=== PATIENT | male | born 1935 | race Caucasian/White ===

== ENCOUNTER 2021-03-16 16:58 | IRF | payer MEDICARE, SELFPAY ==
--- NOTE | 2021-03-16 16:56 | ADMGEN ---
Arrived via personal vehicle with daughter. This patient, Macario Portillo, was admitted to PSYCHIATRIC Room 226-02. Patient/family oriented to hospital policies and general routines including ID bracelet, bed and alarms, visiting hours, pain management, procedures, bathroom and other care routines, personal items, smoking policy, room service/diet, and visiting hours. Information on how to activate the Rapid Response Team has been discussed. Patient/Family are encouraged to report perceived risks to care and to ask questions if they do not understand what they are told or what they should do.
[2021-03-16 17:16] LABS: Glucose Point of Care 130 mg/dl (65-105)
[2021-03-16 17:22] VITALS: BP 146/63; PULSE 58; RESP 95; TEMP 36.4; O2SAT 20
[2021-03-16 17:23] VITALS: BMI 24.0
--- NOTE | 2021-03-16 17:38 | WPDREHABHP ---
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 Patient was found to have left-sided weakness and slurred speech. CT of the head showed no acute intracranial abnormalities. CTA of the head and neck showed no hemodynamically significant stenosis. MRI of the brain demonstrated restricted diffusion in the right periventricular region, wyatt radiata, centrum ovale, suggesting areas of acute lacunar infarcts. MRI of the spine noted degenerative changes with irregularities in the C-spine but no cord signal abnormalities. Echo revealed an ejection fraction of 65-70% and there was no PFO or shunting. Neurology was consulted and the patient was placed on aspirin, Plavix and statin. Patient continued to have left-sided weakness, impaired balance, decreased gross motor control, and decreased safety. Patient is on a regular consistency diet with thin liquids. Patient has intermittent dysarthria and some delayed speech. Patient currently requires min assist with all ADLs and mobility. patient's transfer to [place] [facility] was delayed after patient experienced a 1/2 hour episode of worsening left sided weakness. CT scan was performed with no new changes and patient was cleared to transfer to rehab. Patient was the primary caregiver of his . He has 2 daughters that are supportive. COVID the patient has not traveled outside the [place] or had contact with someone who is ill that has traveled outside the [place] in the past 21 days. Patient has not traveled to an area of the [place] that is experiencing no transmission of the Coronavirus and has not had close personal contact with anyone with COVID. Patient does not have a fever or experienced lower respiratory illness. COVID 19 test on 03/15/2021 was negative Therapy was initiated at the acute care facility and the patient transferred to us from [facility] on 03/16/2021 FALLS OR SURGERIES: The patient has had [no] major surgeries in the 100 days prior to admission. the patient has had falls without injuries. PRIOR LEVEL OF FUNCTION: Eating was [INDEPENDENT] Oral Care was [INDEPENDENT] Toileting Hygiene was [INDEPENDENT] Shower/Bathing was [INDEPENDENT] Upper Body Dressing was [INDEPENDENT] Lower Body Dressing was [INDEPENDENT] Donning/Glidden Footwear was [INDEPENDENT] Rolling Left and Right was [INDEPENDENT] Sit to Lying was [INDEPENDENT] Lying to Sitting was [INDEPENDENT] Sit to Stand was [INDEPENDENT] Bed to Chair Transfers was [INDEPENDENT] Toilet Transfers was [INDEPENDENT] Walking was [INDEPENDENT] [>500 feet] with [NO DEVICE] Wheelchair Mobility was [NOT APPLICABLE PRIOR TO ADMISSION] Stairs were [INDEPENDENT] CURRENT LEVEL OF FUNCTION: Eating was Supervision or touching assistance Oral Care was supervision or touching assistance Toileting Hygiene was partial to moderate assist Shower/Bathing was partial to moderate assist Upper Body Dressing was partial to moderate assist Lower Body Dressing was partial to moderate assist Donning/Glidden Footwear was partial to moderate assist Rolling Left and Right was partial to moderate assist Sit to Lying was partial to moderate assist Lying to Sitting was partial to moderate assist Sit to Stand was partial to moderate assist Bed to Chair Transfers were partial to moderate assist Toilet Transfers were partial to moderate assist Walking was 180 ft with a roller walk
[2021-03-16 18:03] VITALS: BMI 24.0
[2021-03-16 21:10] VITALS: PULSE 66
[2021-03-16] MEDS: MELATONIN 5 MG TABLET PO (21:10)
[2021-03-16] MEDS: FINASTERIDE 5 MG TABLET PO (21:10)
[2021-03-16] MEDS: ATORVASTATIN 40 MG TABLET PO (21:10)
[2021-03-16] MEDS: METOPROLOL SUCCINATE EXT REL 100 MG TABCR 200 MG PO (21:10)
[2021-03-16 22:00] VITALS: BP 150/58; PULSE 63; RESP 16; TEMP 36.5; O2SAT 96
[2021-03-16 22:03] LABS: Glucose Point of Care 141 mg/dl (65-105)
[2021-03-17 04:48] LABS: Basophils Absolute Auto 0.1 K/mm3 (0.0-0.1); Basophils Percent Auto 0.9 % (0.2-1.2); Eosinophils Absolute Auto 0.2 K/mm3 (0-0.3); Eosinophils Percent Auto 2.6 % (0-4.4); Hematocrit 37.4 % (42.0-52.0); Hemoglobin 12.6 g/dL (14.0-18.0); Immature Granulocyte Absolute 0.02 K/mm3 (0.00-0.031); Immature Granulocyte Percent A 0.3 % (0-0.5); Lymphocytes Absolute Auto 1.57 K/mm3 (0.9-3.2); Lymphocytes Percent Auto 22.7 % (18.3-44.2); Mean Corpuscular HGB Conc 33.7 g/dl (32-36); Mean Corpuscular Hemoglobin 30.2 pg (26-34); Mean Corpuscular Volume 89.7 fl (80-100); Mean Platelet Volume 11.6 fl (7.4-10.4); Monocytes Absolute Auto 0.8 K/mm3 (0.1-0.6); Monocytes Percent Auto 11.4 % (2.6-8.5); Neutrophils Absolute Auto 4.3 K/mm3 (1.3-6.7); Neutrophils Percent Auto 62.1 % (45.5-73.1); Platelet Count Result 189 k/mm3 (150-375); Red Blood Count 4.17 M/mm3 (4.6-6.20); Red Cell Distribution Width 13.5 % (11.5-14.5); White Blood Count 6.9 K/mm3 (4.5-10.0)
[2021-03-17 05:02] LABS: Alanine Aminotransferase 30 U/L (4-50); Albumin Level 3.2 g/dL (3.5-5.1); Alkaline Phosphatase 63 U/L (38-126); Anion Gap 5 mmol/L (8-16); Aspartate Amino Transferase 28 U/L (17-59); Bilirubin,Total 0.3 mg/dL (0.2-1.3); Blood Urea Nitrogen 23 mg/dL (9-20); Calcium 9.5 mg/dL (8.4-10.2); Carbon Dioxide 26 mmol/L (22-30); Chloride 107 mmol/L (98-107); Cholesterol 55 mg/dL (0-200); Estimated CRCL calculation 40 ml/min; Estimated Glomerular Filt Rate 58; Glucose 102 mg/dL (75-110); HDL Direct 30 mg/dL; Potassium 3.8 mmol/L (3.4-5.0); Sodium 138 mmol/L (137-145); Triglycerides 70 mg/dL (<150)
[2021-03-17 05:23] LABS: Hemoglobin A1C 5.6 % (<5.7)
[2021-03-17 05:51] LABS: LDL Cholesterol Direct < 30 mg/dL
[2021-03-17 06:00] VITALS: BP 190/71; PULSE 50; RESP 18; TEMP 36.1; O2SAT 99
[2021-03-17 06:10] LABS: Glucose Point of Care 113 mg/dl (65-105)
[2021-03-17 08:00] VITALS: O2SAT 98
[2021-03-17] MEDS: ASPIRIN 325 MG TABLET PO (09:32)
[2021-03-17] MEDS: NIFEdipine 30 MG TAB.ER.24 90 MG PO (09:32)
[2021-03-17] MEDS: CHOLECALCIFEROL 1,000 UNITS TABLET 1000 UNITS PO (09:33)
[2021-03-17] MEDS: CLOPIDOGREL BISULFATE 75 MG TABLET PO (09:33)
[2021-03-17] MEDS: LOSARTAN POTASSIUM 100 MG TABLET PO (09:33)
[2021-03-17 11:52] LABS: Glucose Point of Care 112 mg/dl (65-105)
[2021-03-17 14:00] VITALS: BP 162/67; PULSE 72; RESP 16; TEMP 35.7; O2SAT 98
[2021-03-17 14:35] VITALS: BMI 24.0
--- NOTE | 2021-03-17 15:13 | RPD ---
INDIVIDUALIZED PLAN OF CARE FOR Macario Portillo Brief Synthesis of Pre-Admission Screen, Post-Admission Evaluation and Therapy Evaluations: The patient presents to rehab with multiple acute infarcts. Comorbidities include hypertension, diabetes mellitus, renal disorder, left-sided weakness, intermittent dysarthria, coronary artery disease,and electrolyte imbalances. The complexity of the patient's medical management, nursing, and therapy needs require an inpatient rehab hospital stay with a physician-led interdisciplinary team approach. The patient?s needs will be best met in an intensive program vs. at a lower level of care. The patient requires physician services for neurology services, medical oversight, and coordination of care. Emotional needs will be monitored as depression is a common sequelae of stroke. The patient needs physician monitoring and treatment of hypertension, electrolyte imbalances, monitoring for adverse reactions to new medications, and monitoring for infection. The patient requires nursing services for frequent neuro checks, anticoagulation therapy, medication management and education, pressure relief and skin care management, monitoring of labs, diabetes management and education, and fall/safety precautions. Deficits include:ADLs, Balance, Endurance, Family Training/Education, Mobility, ROM, Safety, Strength, Transfers Workforce Planning Analyst/Case Management for: Discharge Planning and Patient/Family Counseling Physical Therapy: 5 days per week for 60 minutes. Treatments may include: Therapeutic Exercise, Gait Training, Neuromuscular Re-education, Transfer Training, Community Reintegration, Bed Mobility, Patient/Family Education, Wheelchair Mobility Group Therapy/Concurrent Therapy Rationales: -Improve attention span during functional activities in a distracted environment. -Enhance problem solving and/or adequate judgment skills during functional activities in a distracted environment. -Promote increased safety awareness in a distracted environment to reduce fall risk with functional tasks, transfers, and ambulation to allow a more safe, self-sufficient return to the home environment. -Improve dynamic balance skills to promote safety and independence with functional activities in a distracted environment for maximum gain. Occupational Therapy: 5 days per week for 60 minutes. Treatments may include: Therapeutic Exercise, Therapeutic Activity, Cognitive Training, Self-Care Transfer Training, Community Reintegration, Home Management, Patient/Family Education, Wheelchair Mobility Training, Energy Conservation Training Group Therapy/Concurrent Therapy Rationales: -Allow therapist to observe and teach generalization and carry-over of skills learned in individual therapy. -Enhance problem solving and sequencing skills during therapeutic activities in a distracted environment. -Promote increased safety awareness in a realistic setting to reduce fall risk with functional tasks due to visual and verbal distractions. -Increase functional level with ADLs, ADL transfers and use of adaptive equipment through therapeutic activities with others while promoting safety to allow a more safe, self-sufficient return home. Speech Therapy: 5 days per week for 60 minutes. Treatments may include: Dysphasia Therapy, Speech/Language/Communication Therapy, Cognitive Training, Patient/Family Education Group Therapy/Concurrent Therapy - Rationale: -Allow therapist to observe and teach generalization and carry-over of skills learned in individual therapy. -Improve comprehension skills with complex or abstract ideas through discussion in a realistic setting. -Enhance problem solving skills with complex issues during activities in a distracted environment. -Promote increased memory skills and concentration in a distracted environment for a safe transition home. -Improve attention and focus with language/communication skills in a realistic and supportive therapeutic setting. -Al
--- NOTE | 2021-03-17 15:21 | WPDNEURORHBP ---
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 Patient was found to have left-sided weakness and slurred speech. CT of the head showed no acute intracranial abnormalities. CTA of the head and neck showed no hemodynamically significant stenosis. MRI of the brain demonstrated restricted diffusion in the right periventricular region, wyatt radiata, centrum ovale, suggesting areas of acute lacunar infarcts. MRI of the spine noted degenerative changes with irregularities in the C-spine but no cord signal abnormalities. Echo revealed an ejection fraction of 65-70% and there was no PFO or shunting. Neurology was consulted and the patient was placed on aspirin, Plavix and statin. Patient continued to have left-sided weakness, impaired balance, decreased gross motor control, and decreased safety. Patient is on a regular consistency diet with thin liquids. Patient has intermittent dysarthria and some delayed speech. Patient currently requires min assist with all ADLs and mobility. Patient's transfer to [place] [facility] was delayed after patient experienced a 1/2 hour episode of worsening left sided weakness. CT scan was performed with no new changes and patient was cleared to transfer to rehab. Patient was the primary caregiver of his . He has 2 daughters that are supportive. Therapy was initiated at the acute care facility and the patient transferred to us from [facility] [place] on 03/16/2021 03/17/2021 Patient is in good spirits. Patient with dysarthria and left-sided weakness. Overall endurance is improving. Patient voices no complaints Review of Systems Constitutional: Constitutional: Reports difficulty sleeping and Reports weakness Eyes: Eyes: Reports no additional eye complaints Cardiovascular: Cardiovascular: Reports no additional cardiovascular complaints Respiratory: Respiratory: Reports no additional respiratory complaints Gastrointestinal: Gastrointestinal: Reports heartburn ( Patient takes Tums) Genitourinary: Genitourinary: Reports urinary frequency, Reports urinary incontinence and Reports urinary urgency Musculoskeletal: Musculoskeletal: Reports abnormal gait Integumentary/Breasts: Skin/Breast: Reports system reviewed and no additional complaints, except as docu Neurologic: Reports Abnormal speech present, Reports abnormal gait and Reports weakness Psychiatric: Psychiatric: Reports no additional psychiatric complaints Functional Status Ambulation Ability Ability to Ambulate 10 Feet: Minimum Assistance X 1 Ability to Ambulate 50 Feet With 2 Turns: Contact Guard Ability to Ambulate 150 Feet: Contact Guard Ambulation Assistive Devices: None and Walker, Wheeled Exam Const: General: cooperative, healthy appearing, comfortable, no acute distress, alert, awake and well groomed Nutritional Appearance: average body habitus Orientation/consciousness: oriented to person, oriented to place, oriented to time and patient oriented x3 HENMT: Head: other ( Left facial weakness) Ears: hearing grossly normal bilaterally General nose exam: Normal external nose present Mouth: Yes tongue normal Eyes: General: appearance normal, both eyes and all related structures EOM: EOMs intact bilaterally Neck: Neck: normal visual inspection Chest: Chest palpation & inspection: normal inspection of the chest Resp: Effort & Inspection: normal respiratory effort Cardio: Rate: regular rate Rhythm: regular rhythm Skin: General skin exam: normal color Neuro: General: oriented to person, oriented to place, oriented to time and patient oriented x3 Cranial nerves: Yes Bilaterally intact EOM present Cognition (Ne
[2021-03-17 16:35] LABS: Glucose Point of Care 111 mg/dl (65-105)
[2021-03-17 20:13] VITALS: PULSE 66
[2021-03-17] MEDS: METOPROLOL SUCCINATE EXT REL 100 MG TABCR 200 MG PO (20:13)
[2021-03-17] MEDS: MELATONIN 5 MG TABLET PO (20:14)
[2021-03-17] MEDS: FINASTERIDE 5 MG TABLET PO (20:14)
[2021-03-17] MEDS: ATORVASTATIN 40 MG TABLET PO (20:14)
[2021-03-17 20:15] LABS: Glucose Point of Care 158 mg/dl (65-105)
[2021-03-17 22:00] VITALS: BP 138/71; PULSE 63; RESP 16; TEMP 36; O2SAT 95
[2021-03-18 06:00] VITALS: BP 162/63; PULSE 50; RESP 16; TEMP 35.8; O2SAT 96
[2021-03-18 06:51] LABS: Glucose Point of Care 106 mg/dl (65-105)
[2021-03-18] MEDS: NIFEdipine 30 MG TAB.ER.24 90 MG PO (08:20)
[2021-03-18] MEDS: CLOPIDOGREL BISULFATE 75 MG TABLET PO (08:20)
[2021-03-18] MEDS: CHOLECALCIFEROL 1,000 UNITS TABLET 1000 UNITS PO (08:20)
[2021-03-18] MEDS: LOSARTAN POTASSIUM 100 MG TABLET PO (08:20)
[2021-03-18] MEDS: ASPIRIN 325 MG TABLET PO (08:20)
--- NOTE | 2021-03-18 11:29 | WPDNEURORHBP ---
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 Patient was found to have left-sided weakness and slurred speech. CT of the head showed no acute intracranial abnormalities. CTA of the head and neck showed no hemodynamically significant stenosis. MRI of the brain demonstrated restricted diffusion in the right periventricular region, wyatt radiata, centrum ovale, suggesting areas of acute lacunar infarcts. MRI of the spine noted degenerative changes with irregularities in the C-spine but no cord signal abnormalities. Echo revealed an ejection fraction of 65-70% and there was no PFO or shunting. Neurology was consulted and the patient was placed on aspirin, Plavix and statin. Patient continued to have left-sided weakness, impaired balance, decreased gross motor control, and decreased safety. Patient is on a regular consistency diet with thin liquids. Patient has intermittent dysarthria and some delayed speech. Patient currently requires min assist with all ADLs and mobility. Patient's transfer to [place] [facility] was delayed after patient experienced a 1/2 hour episode of worsening left sided weakness. CT scan was performed with no new changes and patient was cleared to transfer to rehab. Patient was the primary caregiver of his . He has 2 daughters that are supportive. Therapy was initiated at the acute care facility and the patient transferred to us from [facility] [place] on 03/16/2021 03/17/2021 Patient is in good spirits. Patient with dysarthria and left-sided weakness. Overall endurance is improving. Patient voices no complaints 03/18/21 Patient with no complaints. Review of Systems Constitutional: Constitutional: Reports difficulty sleeping and Reports weakness Eyes: Eyes: Reports no additional eye complaints Cardiovascular: Cardiovascular: Reports no additional cardiovascular complaints Respiratory: Respiratory: Reports no additional respiratory complaints Gastrointestinal: Gastrointestinal: Reports heartburn ( Patient takes Tums) Genitourinary: Genitourinary: Reports urinary frequency, Reports urinary incontinence and Reports urinary urgency Musculoskeletal: Musculoskeletal: Reports abnormal gait Integumentary/Breasts: Skin/Breast: Reports system reviewed and no additional complaints, except as docu Neurologic: Reports Abnormal speech present, Reports abnormal gait and Reports weakness Psychiatric: Psychiatric: Reports no additional psychiatric complaints Functional Status Ambulation Ability Ability to Ambulate 10 Feet: Minimum Assistance X 1 Ability to Ambulate 50 Feet With 2 Turns: Contact Guard Ability to Ambulate 150 Feet: Contact Guard Ambulation Assistive Devices: None and Walker, Wheeled Exam Const: General: cooperative, healthy appearing, comfortable, no acute distress, alert, awake and well groomed Nutritional Appearance: average body habitus Orientation/consciousness: oriented to person, oriented to place, oriented to time and patient oriented x3 HENMT: Head: other ( Left facial weakness) Ears: hearing grossly normal bilaterally General nose exam: Normal external nose present Mouth: Yes tongue normal Eyes: General: appearance normal, both eyes and all related structures EOM: EOMs intact bilaterally Neck: Neck: normal visual inspection Chest: Chest palpation & inspection: normal inspection of the chest Resp: Effort & Inspection: normal respiratory effort Cardio: Rate: regular rate Rhythm: regular rhythm Skin: General skin exam: normal color Neuro: General: oriented to person, oriented to place, oriented to time and patient oriented x3 Cranial nerves: Yes Bilater
[2021-03-18 14:00] VITALS: BP 155/84; PULSE 53; RESP 18; TEMP 36; O2SAT 99
[2021-03-18 16:32] LABS: Glucose Point of Care 132 mg/dl (65-105)
[2021-03-18 20:00] VITALS: PULSE 59; RESP 16; O2SAT 97
[2021-03-18 21:04] VITALS: BP 156/61; PULSE 59; RESP 16; TEMP 36.1; O2SAT 97
[2021-03-18] MEDS: ATORVASTATIN 40 MG TABLET PO (21:50)
[2021-03-18 21:51] VITALS: PULSE 59
[2021-03-18] MEDS: MELATONIN 5 MG TABLET PO (21:51)
[2021-03-18] MEDS: FINASTERIDE 5 MG TABLET PO (21:51)
[2021-03-18] MEDS: METOPROLOL SUCCINATE EXT REL 100 MG TABCR 200 MG PO (21:51)
[2021-03-19 05:55] VITALS: BP 149/68; PULSE 51; RESP 16; TEMP 36.5; O2SAT 99
[2021-03-19 06:52] LABS: Glucose Point of Care 115 mg/dl (65-105)
--- NOTE | 2021-03-19 09:20 | WPDNEURORHBP ---
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 Patient was found to have left-sided weakness and slurred speech. CT of the head showed no acute intracranial abnormalities. CTA of the head and neck showed no hemodynamically significant stenosis. MRI of the brain demonstrated restricted diffusion in the right periventricular region, wyatt radiata, centrum ovale, suggesting areas of acute lacunar infarcts. MRI of the spine noted degenerative changes with irregularities in the C-spine but no cord signal abnormalities. Echo revealed an ejection fraction of 65-70% and there was no PFO or shunting. Neurology was consulted and the patient was placed on aspirin, Plavix and statin. Patient continued to have left-sided weakness, impaired balance, decreased gross motor control, and decreased safety. Patient is on a regular consistency diet with thin liquids. Patient has intermittent dysarthria and some delayed speech. Patient currently requires min assist with all ADLs and mobility. Patient's transfer to [facility] was delayed after patient experienced a 1/2 hour episode of worsening left sided weakness. CT scan was performed with no new changes and patient was cleared to transfer to rehab. Patient was the primary caregiver of his . He has 2 daughters that are supportive. Therapy was initiated at the acute care facility and the patient transferred to us from [facility] on 03/16/2021 03/19/21 patient voices concerns that he thought he was discharged home last night. Patient is aware that he is in the rehab unit at [facility]. Patient voices no complaints of pain Review of Systems Review of Systems: All systems reviewed & are unremarkable except as noted in HPI and below Functional Status Ambulation Ability Ability to Ambulate 10 Feet: Contact Guard Ability to Ambulate 50 Feet With 2 Turns: Contact Guard Ability to Ambulate 150 Feet: Contact Guard Ambulation Assistive Devices: Walker, Wheeled Exam Narrative: Exam Narrative: Patient is seen in bed. Patient has a concern look upon his face. Patient admits that he was confused this morning thinking he had been discharged home already. Patient is aware that he is at [facility] unit. Patient noted to have left facial weakness. Right upper extremity strength is 4-5 left is 4- out of 5. Overall endurance is improving. Patient was alert and oriented x4 during my exam. It is noted by staff that patient does have moments of disorientation Objective Data Vital Signs Vital Signs: Vital Signs - 24 hr 03/18/21 14:00 03/18/21 20:00 03/18/21 21:04 Temperature 36.0 C L 36.1 C L Pulse Rate 53 L 59 L 59 L Respiratory Rate 18 16 16 Blood Pressure 155/84 H 156/61 H Pulse Oximetry 99 97 97 03/18/21 21:51 03/19/21 05:55 Temperature 36.5 C Pulse Rate 59 L 51 L Respiratory Rate 16 Blood Pressure 149/68 H Pulse Oximetry 99 Intake/Output Intake/Output: Intake & Output 03/16/21 03/17/21 03/18/21 03/19/21 23:59 23:59 23:59 23:59 Intake Total 240 960 720 Balance 240 960 720 Meds/Results Medications: Active Medications Generic Name Dose Route Start Last Admin Trade Name Freq PRN Reason Stop Dose Admin Acetaminophen 325 mg 03/16/21 17:26 Acetaminophen 325 Mg Tablet PO Q4H PRN Mild Pain (1-3) or Fever Aspirin 325 mg 03/17/21 08:00 03/18/21 08:20 Aspirin 325 Mg Tablet PO 325 mg DAILY@0800 LEE ANN Administration Atorvastatin Calcium 40 mg 03/16/21 21:00 03/18/21 21:50 Atorvastatin 40 Mg Tablet PO 40 mg HS LEE ANN Administration Bisacodyl 5 mg 03/16/21 17:31 Bisacodyl 5
[2021-03-19] MEDS: LOSARTAN POTASSIUM 100 MG TABLET PO (09:58)
[2021-03-19] MEDS: CHOLECALCIFEROL 1,000 UNITS TABLET 1000 UNITS PO (09:58)
[2021-03-19] MEDS: NIFEdipine 30 MG TAB.ER.24 90 MG PO (09:58)
[2021-03-19] MEDS: ASPIRIN 325 MG TABLET PO (09:58)
[2021-03-19] MEDS: CLOPIDOGREL BISULFATE 75 MG TABLET PO (09:58)
[2021-03-19 10:34] LABS: Basophils Absolute Auto 0.1 K/mm3 (0.0-0.1); Basophils Percent Auto 1.1 % (0.2-1.2); Eosinophils Absolute Auto 0.2 K/mm3 (0-0.3); Eosinophils Percent Auto 3.1 % (0-4.4); Hematocrit 43.8 % (42.0-52.0); Hemoglobin 14.5 g/dL (14.0-18.0); Immature Granulocyte Absolute 0.02 K/mm3 (0.00-0.031); Immature Granulocyte Percent A 0.3 % (0-0.5); Lymphocytes Absolute Auto 1.49 K/mm3 (0.9-3.2); Mean Corpuscular HGB Conc 33.1 g/dl (32-36); Mean Corpuscular Hemoglobin 29.8 pg (26-34); Mean Corpuscular Volume 90.1 fl (80-100); Mean Platelet Volume 11.4 fl (7.4-10.4); Monocytes Absolute Auto 0.7 K/mm3 (0.1-0.6); Neutrophils Absolute Auto 3.8 K/mm3 (1.3-6.7); Neutrophils Percent Auto 60.5 % (45.5-73.1); Platelet Count Result 241 k/mm3 (150-375); Red Blood Count 4.86 M/mm3 (4.6-6.20); Red Cell Distribution Width 13.8 % (11.5-14.5); White Blood Count 6.2 K/mm3 (4.5-10.0)
[2021-03-19 10:48] LABS: Alanine Aminotransferase 29 U/L (4-50); Alkaline Phosphatase 68 U/L (38-126); Anion Gap 8 mmol/L (8-16); Aspartate Amino Transferase 29 U/L (17-59); Bilirubin,Total 0.5 mg/dL (0.2-1.3); Blood Urea Nitrogen 25 mg/dL (9-20); Carbon Dioxide 29 mmol/L (22-30); Chloride 105 mmol/L (98-107); Estimated CRCL calculation 44 ml/min; Estimated Glomerular Filt Rate > 60; Glucose 125 mg/dL (75-110); Potassium 3.7 mmol/L (3.4-5.0); Sodium 142 mmol/L (137-145)
[2021-03-19 14:00] VITALS: BP 154/80; PULSE 44; RESP 12; TEMP 35.9; O2SAT 100
[2021-03-19 17:08] LABS: Glucose Point of Care 102 mg/dl (65-105)
[2021-03-19 20:00] VITALS: PULSE 50; RESP 16; O2SAT 95
[2021-03-19 20:23] VITALS: PULSE 57
[2021-03-19] MEDS: METOPROLOL SUCCINATE EXT REL 100 MG TABCR 200 MG PO (20:23)
[2021-03-19] MEDS: ATORVASTATIN 40 MG TABLET PO (20:23)
[2021-03-19] MEDS: FINASTERIDE 5 MG TABLET PO (20:23)
[2021-03-19] MEDS: MELATONIN 5 MG TABLET PO (20:24)
[2021-03-19 21:54] LABS: Glucose Point of Care 113 mg/dl (65-105)
[2021-03-19 22:00] VITALS: BP 159/69; PULSE 50; RESP 16; TEMP 36; O2SAT 95
[2021-03-20 06:00] VITALS: BP 148/75; PULSE 57; RESP 16; TEMP 36.7; O2SAT 99
[2021-03-20 06:12] LABS: Glucose Point of Care 110 mg/dl (65-105)
[2021-03-20] MEDS: CHOLECALCIFEROL 1,000 UNITS TABLET 1000 UNITS PO (09:26)
[2021-03-20] MEDS: CLOPIDOGREL BISULFATE 75 MG TABLET PO (09:26)
[2021-03-20] MEDS: LOSARTAN POTASSIUM 100 MG TABLET PO (09:26)
[2021-03-20] MEDS: NIFEdipine 30 MG TAB.ER.24 90 MG PO (09:26)
[2021-03-20] MEDS: ASPIRIN 325 MG TABLET PO (09:26)
--- NOTE | 2021-03-20 09:32 | WPDNEURORHBP ---
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 Patient was found to have left-sided weakness and slurred speech. CT of the head showed no acute intracranial abnormalities. CTA of the head and neck showed no hemodynamically significant stenosis. MRI of the brain demonstrated restricted diffusion in the right periventricular region, wyatt radiata, centrum ovale, suggesting areas of acute lacunar infarcts. MRI of the spine noted degenerative changes with irregularities in the C-spine but no cord signal abnormalities. Echo revealed an ejection fraction of 65-70% and there was no PFO or shunting. Neurology was consulted and the patient was placed on aspirin, Plavix and statin. Patient continued to have left-sided weakness, impaired balance, decreased gross motor control, and decreased safety. Patient is on a regular consistency diet with thin liquids. Patient has intermittent dysarthria and some delayed speech. Patient currently requires min assist with all ADLs and mobility. Patient's transfer to [place] [facility] was delayed after patient experienced a 1/2 hour episode of worsening left sided weakness. CT scan was performed with no new changes and patient was cleared to transfer to rehab. Patient was the primary caregiver of his . He has 2 daughters that are supportive. Therapy was initiated at the acute care facility and the patient transferred to us from [facility] on 03/16/2021 03/19/21 patient voices concerns that he thought he was discharged home last night. Patient is aware that he is in the rehab unit at [facility]. Patient voices no complaints of pain 03/20/2021. Guille has moments of teariness. Patient wants to resume his role as a caregiver to his . Appetite is decreasing. Will add Zoloft 12.5 mg for depression and anxiety. Patient has a history of a nervous breakdown Patient does not recall his prior med. Review of Systems Review of Systems: All systems reviewed & are unremarkable except as noted in HPI and below Constitutional: Constitutional: Reports difficulty sleeping and Reports weakness Eyes: Eyes: Reports no additional eye complaints Cardiovascular: Cardiovascular: Reports no additional cardiovascular complaints Respiratory: Respiratory: Reports no additional respiratory complaints Gastrointestinal: Gastrointestinal: Reports heartburn ( Patient takes Tums) Genitourinary: Genitourinary: Reports urinary frequency, Reports urinary incontinence and Reports urinary urgency Musculoskeletal: Musculoskeletal: Reports abnormal gait Integumentary/Breasts: Skin/Breast: Reports system reviewed and no additional complaints, except as docu Neurologic: Reports Abnormal speech present, Reports abnormal gait and Reports weakness Psychiatric: Psychiatric: Reports no additional psychiatric complaints Functional Status Ambulation Ability Ability to Ambulate 10 Feet: Contact Guard Ability to Ambulate 50 Feet With 2 Turns: Contact Guard Ability to Ambulate 150 Feet: Contact Guard Ambulation Assistive Devices: Walker, Wheeled Exam Narrative: Exam Narrative: Patient is seen during ST. Patient becomes tearful. Patient noted to have left facial weakness. Cognitin better today. Overall endurance is improving. Patient was alert and oriented x4 during my exam.Sitting tolerance better. heart rate and rhythm regular. Lungs are clear to auscultation. Objective Data Vital Signs Vital Signs: Vital Signs - 24 hr 03/19/21 14:00 03/19/21 20:00 03/19/21 20:23 Temperature 35.9 C L Pulse Rate 44 L 50 L 57 L Respiratory Rate 12 16 Blood Pressure 154/80 H Pulse Oxi
[2021-03-20] MEDS: SERTRALINE HCL 12.5 MG TABLET PO (12:43)
[2021-03-20 14:00] VITALS: BP 142/59; PULSE 48; RESP 14; TEMP 35.5; O2SAT 100
[2021-03-20 17:30] LABS: Glucose Point of Care 127 mg/dl (65-105)
[2021-03-20 20:54] VITALS: PULSE 60
[2021-03-20] MEDS: FINASTERIDE 5 MG TABLET PO (20:54)
[2021-03-20] MEDS: ATORVASTATIN 40 MG TABLET PO (20:54)
[2021-03-20] MEDS: METOPROLOL SUCCINATE EXT REL 100 MG TABCR 200 MG PO (20:54)
[2021-03-20] MEDS: MELATONIN 5 MG TABLET PO (20:54)
[2021-03-20 22:00] VITALS: BP 165/60; PULSE 62; RESP 16; TEMP 36.3; O2SAT 97
[2021-03-20] MEDS: BISACODYL 10 MG SUPPOSITORY RECTAL (22:05)
[2021-03-21 06:00] VITALS: BP 138/64; PULSE 50; RESP 16; TEMP 36.8; O2SAT 98
[2021-03-21 06:19] LABS: Glucose Point of Care 109 mg/dl (65-105)
[2021-03-21] MEDS: CHOLECALCIFEROL 1,000 UNITS TABLET 1000 UNITS PO (08:52)
[2021-03-21] MEDS: ASPIRIN 325 MG TABLET PO (08:52)
[2021-03-21] MEDS: CLOPIDOGREL BISULFATE 75 MG TABLET PO (08:52)
[2021-03-21] MEDS: SERTRALINE HCL 12.5 MG TABLET PO (08:52)
[2021-03-21] MEDS: NIFEdipine 30 MG TAB.ER.24 90 MG PO (08:52)
[2021-03-21] MEDS: LOSARTAN POTASSIUM 100 MG TABLET PO (08:52)
[2021-03-21 14:00] VITALS: BP 142/56; PULSE 52; RESP 18; TEMP 36.5; O2SAT 96
[2021-03-21 17:02] LABS: Glucose Point of Care 136 mg/dl (65-105)
[2021-03-21 20:50] VITALS: PULSE 55; RESP 14; O2SAT 96
[2021-03-21 21:36] VITALS: PULSE 60
[2021-03-21] MEDS: METOPROLOL SUCCINATE EXT REL 100 MG TABCR 200 MG PO (21:36)
[2021-03-21] MEDS: FINASTERIDE 5 MG TABLET PO (21:36)
[2021-03-21] MEDS: ATORVASTATIN 40 MG TABLET PO (21:37)
[2021-03-21] MEDS: MELATONIN 5 MG TABLET PO (21:37)
[2021-03-21 21:58] VITALS: BP 173/59; PULSE 50; RESP 14; TEMP 36.2; O2SAT 99
[2021-03-21 22:15] VITALS: BP 158/65; PULSE 55; O2SAT 96
[2021-03-22 06:00] VITALS: BP 141/61; PULSE 51; RESP 20; TEMP 36.4; O2SAT 93
[2021-03-22 06:48] LABS: Glucose Point of Care 104 mg/dl (65-105)
[2021-03-22 08:00] VITALS: PULSE 51; RESP 20; O2SAT 93
[2021-03-22] MEDS: SERTRALINE HCL 12.5 MG TABLET PO (08:31)
[2021-03-22] MEDS: LOSARTAN POTASSIUM 100 MG TABLET PO (08:31)
[2021-03-22] MEDS: CHOLECALCIFEROL 1,000 UNITS TABLET 1000 UNITS PO (08:31)
[2021-03-22] MEDS: NIFEdipine 30 MG TAB.ER.24 90 MG PO (08:31)
[2021-03-22] MEDS: ASPIRIN 325 MG TABLET PO (08:31)
[2021-03-22] MEDS: CLOPIDOGREL BISULFATE 75 MG TABLET PO (08:31)
--- NOTE | 2021-03-22 10:48 | WPDNEURORHBP ---
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 Patient was found to have left-sided weakness and slurred speech. CT of the head showed no acute intracranial abnormalities. CTA of the head and neck showed no hemodynamically significant stenosis. MRI of the brain demonstrated restricted diffusion in the right periventricular region, wyatt radiata, centrum ovale, suggesting areas of acute lacunar infarcts. MRI of the spine noted degenerative changes with irregularities in the C-spine but no cord signal abnormalities. Echo revealed an ejection fraction of 65-70% and there was no PFO or shunting. Neurology was consulted and the patient was placed on aspirin, Plavix and statin. Patient continued to have left-sided weakness, impaired balance, decreased gross motor control, and decreased safety. Patient is on a regular consistency diet with thin liquids. Patient has intermittent dysarthria and some delayed speech. Patient currently requires min assist with all ADLs and mobility. Patient's transfer to [place] [facility] was delayed after patient experienced a 1/2 hour episode of worsening left sided weakness. CT scan was performed with no new changes and patient was cleared to transfer to rehab. Patient was the primary caregiver of his . He has 2 daughters that are supportive. Therapy was initiated at the acute care facility and the patient transferred to us from [facility] on 03/16/2021 03/19/21 patient voices concerns that he thought he was discharged home last night. Patient is aware that he is in the rehab unit at [facility]. Patient voices no complaints of pain 03/20/2021. Guille has moments of teariness. Patient wants to resume his role as a caregiver to his . Appetite is decreasing. Will add Zoloft 12.5 mg for depression and anxiety. Patient has a history of a nervous breakdown Patient does not recall his prior med. 03/22/21 Patient seen during OT. Transfers are approaching independence. Patient worried about being apart from his . Review of Systems Review of Systems: All systems reviewed & are unremarkable except as noted in HPI and below Functional Status Ambulation Ability Ability to Ambulate 10 Feet: Standby Assistance Ability to Ambulate 50 Feet With 2 Turns: Contact Guard Ability to Ambulate 150 Feet: Standby Assistance Ambulation Assistive Devices: Walker, Wheeled Exam Narrative: Exam Narrative: Patient is seen during OT. Patient noted to have improved left facial weakness. Cognition better today. Overall endurance is improving. Patient was alert and oriented x4 during my exam. Transfers are approaching independence. heart rate and rhythm regular. Lungs are clear to auscultation. Objective Data Vital Signs Vital Signs: Vital Signs - 24 hr 03/21/21 14:00 03/21/21 20:50 03/21/21 21:36 Temperature 36.5 C Pulse Rate 52 L 55 L 60 Respiratory Rate 18 14 Blood Pressure 142/56 H Pulse Oximetry 96 96 03/21/21 21:58 03/21/21 22:15 03/22/21 06:00 Temperature 36.2 C L 36.4 C L Pulse Rate 50 L 55 L 51 L Respiratory Rate 14 20 Blood Pressure 173/59 H 158/65 H 141/61 H Pulse Oximetry 99 96 93 03/22/21 08:00 Temperature Pulse Rate 51 L Respiratory Rate 20 Blood Pressure Pulse Oximetry 93 Intake/Output Intake/Output: Intake & Output 03/19/21 03/20/21 03/21/21 03/22/21 23:59 23:59 23:59 23:59 Intake Total 617 755 3521 240 Balance 007 732 0829 240 Meds/Results Medications: Active Medications Generic Name Dose Route Start Last Admin Trade Name Freq PRN Reason Stop Dose Admin Acetaminophen 325 mg 03/16/21 17:26 Acetaminophen
--- NOTE | 2021-03-22 12:46 | PCDIET ---
Nutrition Follow-Up Complete: Nutrition Diagnosis: Involuntary weight loss reported to poor appetite as evidenced by patient report of 50 pound weight loss x 9 months without trying due to decreased intake. Nutrition Goal: Patient to consume 75% of meals/supplements or greater and maintain weight. Goal met. Patient consumed average of 84% of recorded meals since 03/18/21. Patient reports ordering a lot of salads and reports appetite remains decreased. Eating pipe caulker salad for lunch at time of visit. Reviewed importance of controlling blood pressure, cholesterol, and blood sugar to reduce risk of future CVA, but emphasize importance of adequate intake and maintaining lean body mass. Patient requesting Glucerna Shake (220kcal, 10g protein) 1x daily which is appropriate. Last recorded weight is 74 kg. Recommend obtaining new weight. Bowel Motility: Last documented BM on 03/21/21. Labs Reviewed: Glu (104) Meds Noted: Lipitor, Cozaar, Toprol XL, Procardia, Vitamin D Additional Notes: No documented skin breakdown. Will continue to monitor with same goal. Nutrition Monitoring and Evaluation: Follow up in 5 days.
[2021-03-22 14:00] VITALS: BP 127/56; PULSE 55; RESP 12; TEMP 35.9; O2SAT 99
[2021-03-22 16:55] LABS: Glucose Point of Care 102 mg/dl (65-105)
[2021-03-22 21:05] VITALS: PULSE 62
[2021-03-22] MEDS: METOPROLOL SUCCINATE EXT REL 100 MG TABCR 200 MG PO (21:05)
[2021-03-22] MEDS: MELATONIN 5 MG TABLET PO (21:06)
[2021-03-22] MEDS: FINASTERIDE 5 MG TABLET PO (21:06)
[2021-03-22] MEDS: ATORVASTATIN 40 MG TABLET PO (21:08)
[2021-03-22 21:15] VITALS: PULSE 63; RESP 18; O2SAT 94
[2021-03-22 21:55] VITALS: BP 148/68; PULSE 63; RESP 18; TEMP 36.8; O2SAT 94
[2021-03-23 06:00] VITALS: BP 160/68; PULSE 51; RESP 18; TEMP 37.1; O2SAT 96
[2021-03-23 06:42] LABS: Glucose Point of Care 114 mg/dl (65-105)
[2021-03-23 08:00] VITALS: PULSE 51; RESP 18; O2SAT 96
[2021-03-23] MEDS: ASPIRIN 325 MG TABLET PO (08:51)
[2021-03-23] MEDS: LOSARTAN POTASSIUM 100 MG TABLET PO (08:51)
[2021-03-23] MEDS: NIFEdipine 30 MG TAB.ER.24 90 MG PO (08:51)
[2021-03-23] MEDS: SERTRALINE HCL 12.5 MG TABLET PO (08:51)
[2021-03-23] MEDS: CLOPIDOGREL BISULFATE 75 MG TABLET PO (08:51)
[2021-03-23] MEDS: CHOLECALCIFEROL 1,000 UNITS TABLET 1000 UNITS PO (08:51)
--- NOTE | 2021-03-23 11:56 | WPDNEURORHBP ---
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 Patient was found to have left-sided weakness and slurred speech. CT of the head showed no acute intracranial abnormalities. CTA of the head and neck showed no hemodynamically significant stenosis. MRI of the brain demonstrated restricted diffusion in the right periventricular region, wyatt radiata, centrum ovale, suggesting areas of acute lacunar infarcts. MRI of the spine noted degenerative changes with irregularities in the C-spine but no cord signal abnormalities. Echo revealed an ejection fraction of 65-70% and there was no PFO or shunting. Neurology was consulted and the patient was placed on aspirin, Plavix and statin. Patient continued to have left-sided weakness, impaired balance, decreased gross motor control, and decreased safety. Patient is on a regular consistency diet with thin liquids. Patient has intermittent dysarthria and some delayed speech. Patient currently requires min assist with all ADLs and mobility. Patient's transfer to [place] [facility] was delayed after patient experienced a 1/2 hour episode of worsening left sided weakness. CT scan was performed with no new changes and patient was cleared to transfer to rehab. Patient was the primary caregiver of his . He has 2 daughters that are supportive. Therapy was initiated at the acute care facility and the patient transferred to us from [facility] on 03/16/2021 03/19/21 patient voices concerns that he thought he was discharged home last night. Patient is aware that he is in the rehab unit at [facility]. Patient voices no complaints of pain 03/20/2021. Guille has moments of teariness. Patient wants to resume his role as a caregiver to his . Appetite is decreasing. Will add Zoloft 12.5 mg for depression and anxiety. Patient has a history of a nervous breakdown Patient does not recall his prior med. 03/22/21 Patient seen during OT. Transfers are approaching independence. Patient worried about being apart from his . 03/23/2021 patient looking forward to discharge home. Patient voices no Farida Review of Systems Review of Systems: All systems reviewed & are unremarkable except as noted in HPI and below Functional Status Ambulation Ability Ability to Ambulate 10 Feet: Independent Ability to Ambulate 50 Feet With 2 Turns: Independent Ability to Ambulate 150 Feet: Standby Assistance Ambulation Assistive Devices: Walker, Wheeled Exam Narrative: Exam Narrative: patient's overall mood is improved. Head is normocephalic with mild facial droop noted. Mild speech dysarthria is present. Voice volume has improved. Heart rate and rhythm is regular. Lungs are clear to auscultation. Abdomen is soft nontender. Mild hemiplegia persist Objective Data Vital Signs Vital Signs: Vital Signs - 24 hr 03/22/21 14:00 03/22/21 21:05 03/22/21 21:15 Temperature 35.9 C L Pulse Rate 55 L 62 63 Respiratory Rate 12 18 Blood Pressure 127/56 L Pulse Oximetry 99 94 03/22/21 21:55 03/23/21 06:00 Temperature 36.8 C 37.1 C Pulse Rate 63 51 L Respiratory Rate 18 18 Blood Pressure 148/68 H 160/68 H Pulse Oximetry 94 96 Intake/Output Intake/Output: Intake & Output 03/20/21 03/21/21 03/22/21 03/23/21 23:59 23:59 23:59 23:59 Intake Total 840 1080 840 240 Balance 840 1080 840 240 Meds/Results Medications: Active Medications Generic Name Dose Route Start Last Admin Trade Name Freq PRN Reason Stop Dose Admin Acetaminophen 325 mg 03/16/21 17:26 Acetaminophen 325 Mg Tablet PO Q4H PRN Mild Pain (1-3) or Fever Aspirin 325 mg 03/17/21 08
[2021-03-23 14:00] VITALS: BP 152/67; PULSE 58; RESP 18; TEMP 36.5; O2SAT 96
[2021-03-23] MEDS: BISACODYL 10 MG SUPPOSITORY RECTAL (14:27)
[2021-03-23 16:37] LABS: Glucose Point of Care 146 mg/dl (65-105)
--- NOTE | 2021-03-23 18:31 | PC.NURSE ---
suppository and fleets enema given this shift. not much results. will try mag citrate drink next.
[2021-03-23] MEDS: MAGNESIUM CITRATE 300 ML BTL PO (19:23)
--- NOTE | 2021-03-23 19:26 | PC.NURSE ---
Mag citrate given to patient. will continue to monitor.
[2021-03-23] MEDS: MELATONIN 5 MG TABLET PO (20:45)
[2021-03-23] MEDS: FINASTERIDE 5 MG TABLET PO (20:45)
[2021-03-23 21:07] VITALS: BP 192/76; PULSE 60; RESP 16; TEMP 36.2; O2SAT 99
[2021-03-23] MEDS: ATORVASTATIN 40 MG TABLET PO (21:27)
[2021-03-23 21:33] VITALS: PULSE 64
[2021-03-23] MEDS: METOPROLOL SUCCINATE EXT REL 100 MG TABCR 200 MG PO (21:33)
[2021-03-23 21:35] VITALS: BP 161/56; PULSE 64; RESP 16; TEMP 36.3; O2SAT 99
[2021-03-24 04:38] LABS: Basophils Absolute Auto 0.1 K/mm3 (0.0-0.1); Basophils Percent Auto 0.6 % (0.2-1.2); Eosinophils Absolute Auto 0.1 K/mm3 (0-0.3); Eosinophils Percent Auto 1.5 % (0-4.4); Hematocrit 37.4 % (42.0-52.0); Hemoglobin 12.4 g/dL (14.0-18.0); Immature Granulocyte Absolute 0.02 K/mm3 (0.00-0.031); Immature Granulocyte Percent A 0.2 % (0-0.5); Lymphocytes Percent Auto 19.8 % (18.3-44.2); Mean Corpuscular HGB Conc 33.2 g/dl (32-36); Mean Corpuscular Hemoglobin 29.8 pg (26-34); Mean Corpuscular Volume 89.9 fl (80-100); Mean Platelet Volume 11.1 fl (7.4-10.4); Monocytes Absolute Auto 0.9 K/mm3 (0.1-0.6); Monocytes Percent Auto 11.5 % (2.6-8.5); Neutrophils Absolute Auto 5.4 K/mm3 (1.3-6.7); Neutrophils Percent Auto 66.4 % (45.5-73.1); Platelet Count Result 224 k/mm3 (150-375); Red Blood Count 4.16 M/mm3 (4.6-6.20); Red Cell Distribution Width 13.6 % (11.5-14.5); White Blood Count 8.1 K/mm3 (4.5-10.0)
[2021-03-24 05:02] LABS: Alanine Aminotransferase 28 U/L (4-50); Albumin Level 3.5 g/dL (3.5-5.1); Alkaline Phosphatase 64 U/L (38-126); Anion Gap 5 mmol/L (8-16); Aspartate Amino Transferase 31 U/L (17-59); Bilirubin,Total 0.3 mg/dL (0.2-1.3); Blood Urea Nitrogen 24 mg/dL (9-20); Calcium 10.3 mg/dL (8.4-10.2); Carbon Dioxide 30 mmol/L (22-30); Chloride 108 mmol/L (98-107); Estimated CRCL calculation 44 ml/min; Estimated Glomerular Filt Rate > 60; Glucose 127 mg/dL (75-110); Potassium 4.2 mmol/L (3.4-5.0); Sodium 143 mmol/L (137-145)
[2021-03-24 06:00] VITALS: BP 167/84; PULSE 55; RESP 16; TEMP 36.7; O2SAT 94
[2021-03-24 06:22] LABS: Glucose Point of Care 135 mg/dl (65-105)
[2021-03-24] MEDS: CHOLECALCIFEROL 1,000 UNITS TABLET 1000 UNITS PO (09:47)
[2021-03-24] MEDS: ASPIRIN 325 MG TABLET PO (09:47)
[2021-03-24] MEDS: LOSARTAN POTASSIUM 100 MG TABLET PO (09:47)
[2021-03-24] MEDS: CLOPIDOGREL BISULFATE 75 MG TABLET PO (09:47)
[2021-03-24] MEDS: NIFEdipine 30 MG TAB.ER.24 90 MG PO (09:48)
[2021-03-24] MEDS: SERTRALINE HCL 12.5 MG TABLET PO (09:48)
--- NOTE | 2021-03-24 11:14 | WPDNEURORHBP ---
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 Patient was found to have left-sided weakness and slurred speech. CT of the head showed no acute intracranial abnormalities. CTA of the head and neck showed no hemodynamically significant stenosis. MRI of the brain demonstrated restricted diffusion in the right periventricular region, wyatt radiata, centrum ovale, suggesting areas of acute lacunar infarcts. MRI of the spine noted degenerative changes with irregularities in the C-spine but no cord signal abnormalities. Echo revealed an ejection fraction of 65-70% and there was no PFO or shunting. Neurology was consulted and the patient was placed on aspirin, Plavix and statin. Patient continued to have left-sided weakness, impaired balance, decreased gross motor control, and decreased safety. Patient is on a regular consistency diet with thin liquids. Patient has intermittent dysarthria and some delayed speech. Patient currently requires min assist with all ADLs and mobility. Patient's transfer to [place] [facility] was delayed after patient experienced a 1/2 hour episode of worsening left sided weakness. CT scan was performed with no new changes and patient was cleared to transfer to rehab. Patient was the primary caregiver of his . He has 2 daughters that are supportive. Therapy was initiated at the acute care facility and the patient transferred to us from [facility] on 03/16/2021 03/19/21 Patient voices concerns that he thought he was discharged home last night. Patient is aware that he is in the rehab unit at [facility]. Patient voices no complaints of pain 03/20/2021. Guille has moments of teariness. Patient wants to resume his role as a caregiver to his . Appetite is decreasing. Will add Zoloft 12.5 mg for depression and anxiety. Patient has a history of a nervous breakdown Patient does not recall his prior med. 03/22/21 Patient seen during OT. Transfers are approaching independence. Patient worried about being apart from his . 03/23/2021 patient looking forward to discharge home 03/24/21 Complaints of constipation. Review of Systems Review of Systems: All systems reviewed & are unremarkable except as noted in HPI and below Functional Status Ambulation Ability Ability to Ambulate 10 Feet: Independent Ability to Ambulate 50 Feet With 2 Turns: Independent Ability to Ambulate 150 Feet: Independent Ambulation Assistive Devices: Walker, Wheeled Transfers Ability Ability to Transfer In/Out of Chair: Independent Exam Narrative: Exam Narrative: patient's overall mood is improved. Head is normocephalic with mild facial droop noted. Mild speech dysarthria is present. Voice volume has improved. Heart rate and rhythm is regular. Lungs are clear to auscultation. Abdomen is soft nontender. Mild hemiplegia persist Objective Data Vital Signs Vital Signs: Vital Signs - 24 hr 03/23/21 14:00 03/23/21 21:07 03/23/21 21:33 Temperature 36.5 C 36.2 C L Pulse Rate 58 L 60 64 Respiratory Rate 18 16 Blood Pressure 152/67 H 192/76 H Pulse Oximetry 96 99 03/23/21 21:35 03/24/21 06:00 Temperature 36.3 C L 36.7 C Pulse Rate 64 55 L Respiratory Rate 16 16 Blood Pressure 161/56 H 167/84 H Pulse Oximetry 99 94 Intake/Output Intake/Output: Intake & Output 03/21/21 03/22/21 03/23/21 03/24/21 23:59 23:59 23:59 23:59 Intake Total 1080 840 840 240 Balance 1080 840 840 240 Meds/Results Medications: Active Medications Generic Name Dose Route Start Last Admin Trade Name Rogerioq PRN Reason Stop Dose Admin Acetaminophen 325 mg 03/16/21 17:26 Acetaminophen 325 Mg
[2021-03-24 14:00] VITALS: BP 158/64; PULSE 52; RESP 18; TEMP 36.4; O2SAT 95
[2021-03-24 16:42] LABS: Glucose Point of Care 95 mg/dl (65-105)
[2021-03-24] MEDS: ATORVASTATIN 40 MG TABLET PO (21:13)
[2021-03-24 21:15] VITALS: PULSE 82
[2021-03-24] MEDS: MELATONIN 5 MG TABLET PO (21:15)
[2021-03-24] MEDS: FINASTERIDE 5 MG TABLET PO (21:15)
[2021-03-24] MEDS: METOPROLOL SUCCINATE EXT REL 100 MG TABCR 200 MG PO (21:15)
[2021-03-24 21:35] VITALS: BP 154/67; PULSE 61; RESP 16; TEMP 36.9; O2SAT 94
[2021-03-25 06:00] VITALS: BP 165/69; PULSE 50; RESP 16; TEMP 36.2; O2SAT 98
[2021-03-25 06:23] LABS: Glucose Point of Care 110 mg/dl (65-105)
--- NOTE | 2021-03-25 06:42 | PC.NURSE ---
03/24/21 at 2130-- patient refuses enema at this time. TDialRNC
--- NOTE | 2021-03-25 09:40 | PCPTNOTE ---
Macario Portillo was evaluated for a wheeled walker on 03/25/2021 by this physical therapist hotel assistant general manager. The wheeled walker will resolve patient's mobility limitations and will be used for ADL's within the home. The patient can safely use the wheeled walker. ?The wheeled walker will resolve the patient?s mobility deficits, including impaired balance, decrease strength and decrease endurance.
[2021-03-25] MEDS: ASPIRIN 325 MG TABLET PO (10:12)
[2021-03-25] MEDS: CLOPIDOGREL BISULFATE 75 MG TABLET PO (10:12)
[2021-03-25] MEDS: LOSARTAN POTASSIUM 100 MG TABLET PO (10:12)
[2021-03-25] MEDS: polyethylene glycoL 3350 17 GM POWD.PACK PO (10:13)
[2021-03-25] MEDS: NIFEdipine 30 MG TAB.ER.24 90 MG PO (10:13)
[2021-03-25] MEDS: SERTRALINE HCL 12.5 MG TABLET PO (10:13)
[2021-03-25] MEDS: CHOLECALCIFEROL 1,000 UNITS TABLET 1000 UNITS PO (10:16)
--- NOTE | 2021-03-25 12:36 | PCDIET ---
Nutrition Follow-Up Complete: Nutrition Diagnosis: Involuntary weight loss reported to poor appetite as evidenced by patient report of 50 pound weight loss x 9 months without trying due to decreased intake. Nutrition Goal: Patient to consume 75% of meals/supplements or greater and maintain weight. Goal met. Average intake since last review has been 78% of recorded meals on diabetic diet. Glucerna Shake continues 1x daily. Recommend checking vitamin D level and stopping supplement, if able. Last recorded weight is 74 kg. Recommend obtaining new weight. Bowel Motility: Reported constipation - patient on scheduled Miralax and prn Dulcolax and Magnesium Citrate Labs Reviewed: Glu (110), BUN (24), Ca (10.3) Meds Noted: Lipitor, Cozaar, Toprol, Nifedipine, Miralax, Vitamin D Additional Notes: No documented skin breakdown. Will continue to monitor. Nutrition Monitoring and Evaluation: Follow up in 5 days.
[2021-03-25 13:53] VITALS: BP 142/59; PULSE 50; RESP 20; TEMP 35.9; O2SAT 99
[2021-03-25 17:02] LABS: Glucose Point of Care 99 mg/dl (65-105)
--- NOTE | 2021-03-25 17:39 | WPDNEURORHBP ---
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 Patient was found to have left-sided weakness and slurred speech. CT of the head showed no acute intracranial abnormalities. CTA of the head and neck showed no hemodynamically significant stenosis. MRI of the brain demonstrated restricted diffusion in the right periventricular region, wyatt radiata, centrum ovale, suggesting areas of acute lacunar infarcts. MRI of the spine noted degenerative changes with irregularities in the C-spine but no cord signal abnormalities. Echo revealed an ejection fraction of 65-70% and there was no PFO or shunting. Neurology was consulted and the patient was placed on aspirin, Plavix and statin. Patient continued to have left-sided weakness, impaired balance, decreased gross motor control, and decreased safety. Patient is on a regular consistency diet with thin liquids. Patient has intermittent dysarthria and some delayed speech. Patient currently requires min assist with all ADLs and mobility. Patient's transfer to [place] [facility] was delayed after patient experienced a 1/2 hour episode of worsening left sided weakness. CT scan was performed with no new changes and patient was cleared to transfer to rehab. Patient was the primary caregiver of his . He has 2 daughters that are supportive. Therapy was initiated at the acute care facility and the patient transferred to us from [facility] on 03/16/2021 03/19/21 Patient voices concerns that he thought he was discharged home last night. Patient is aware that he is in the rehab unit at [facility]. Patient voices no complaints of pain 03/20/2021. Guille has moments of teariness. Patient wants to resume his role as a caregiver to his . Appetite is decreasing. Will add Zoloft 12.5 mg for depression and anxiety. Patient has a history of a nervous breakdown Patient does not recall his prior med. 03/22/21 Patient seen during OT. Transfers are approaching independence. Patient worried about being apart from his . 03/23/2021 patient looking forward to discharge home 03/24/21 Complaints of constipation. 03/25/21 family training was performed today. Patient would like to be discharged tomorrow. Patient is at an independent level. Review of Systems Review of Systems: All systems reviewed & are unremarkable except as noted in HPI and below Functional Status Ambulation Ability Ability to Ambulate 10 Feet: Independent Ability to Ambulate 50 Feet With 2 Turns: Independent Ability to Ambulate 150 Feet: Independent Ambulation Assistive Devices: Walker, Wheeled Transfers Ability Ability to Transfer In/Out of Chair: Independent Exam Narrative: Exam Narrative: patient's overall mood is improved. Head is normocephalic with mild facial droop noted. Mild speech dysarthria is present. Voice volume has improved. Heart rate and rhythm is regular. Lungs are clear to auscultation. Abdomen is soft nontender. Mild hemiplegia persist Objective Data Vital Signs Vital Signs: Vital Signs - 24 hr 03/24/21 21:15 03/24/21 21:35 03/25/21 06:00 Temperature 36.9 C 36.2 C L Pulse Rate 82 61 50 L Respiratory Rate 16 16 Blood Pressure 154/67 H 165/69 H Pulse Oximetry 94 98 03/25/21 13:53 Temperature 35.9 C L Pulse Rate 50 L Respiratory Rate 20 Blood Pressure 142/59 H Pulse Oximetry 99 Intake/Output Intake/Output: Intake & Output 03/22/21 03/23/21 03/24/21 03/25/21 23:59 23:59 23:59 23:59 Intake Total 840 840 720 720 Balance 840 840 720 720 Meds/Results Medications: Active Medications Generic Name Dose Route Start Last Admin Trade Name Rony Dumont
[2021-03-25 20:34] VITALS: PULSE 68
[2021-03-25] MEDS: METOPROLOL SUCCINATE EXT REL 100 MG TABCR 200 MG PO (20:34)
[2021-03-25] MEDS: ATORVASTATIN 40 MG TABLET PO (20:37)
[2021-03-25] MEDS: MELATONIN 5 MG TABLET PO (20:37)
[2021-03-25] MEDS: FINASTERIDE 5 MG TABLET PO (20:37)
[2021-03-25 22:00] VITALS: BP 164/62; PULSE 55; RESP 16; TEMP 37.1; O2SAT 96
[2021-03-26 06:00] VITALS: BP 166/70; PULSE 48; RESP 16; TEMP 36.5; O2SAT 95
[2021-03-26] MEDS: SERTRALINE HCL 12.5 MG TABLET PO (09:52)
[2021-03-26] MEDS: polyethylene glycoL 3350 17 GM POWD.PACK PO (09:52)
[2021-03-26] MEDS: LOSARTAN POTASSIUM 100 MG TABLET PO (09:53)
[2021-03-26] MEDS: CLOPIDOGREL BISULFATE 75 MG TABLET PO (09:53)
[2021-03-26] MEDS: CHOLECALCIFEROL 1,000 UNITS TABLET 1000 UNITS PO (09:53)
[2021-03-26] MEDS: NIFEdipine 30 MG TAB.ER.24 90 MG PO (09:53)
[2021-03-26] MEDS: ASPIRIN 325 MG TABLET PO (09:53)
--- NOTE | 2021-03-26 09:54 | PM.DS ---
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 PCP will determine ongoing need of Plavix. Patient was placed on 325 mg of aspirin, Lipitor 40 mg daily, and Plavix 75 mg daily (2) Left hemiplegia: Code(s): G81.94 - Hemiplegia, unspecified affecting left nondominant side Status: Acute Assessment and Plan: PT OT (3) Dysarthria: Code(s): R47.1 - Dysarthria and anarthria Status: Acute Assessment and Plan: speech (4) Renal disorder: Code(s): N28.9 - Disorder of kidney and ureter, unspecified Status: Acute (5) Hypertension: Code(s): I10 - Essential (primary) hypertension Status: Acute Assessment and Plan: patient is on Cozaar 100 mg daily, Toprol XL 200 mg daily, Procardia 90 mg daily (6) Diabetes mellitus: Code(s): E11.9 - Type 2 diabetes mellitus without complications Status: Acute Assessment and Plan: patient requires no medication (7) Coronary artery disease: Code(s): I25.10 - Atherosclerotic heart disease of [place] coronary artery without angina pectoris Status: Acute Assessment and Plan: patient on aspirin (8) Anxiety: Code(s): F41.9 - Anxiety disorder, unspecified Status: Acute Assessment and Plan: 03/20/2021. Zoloft 12.5 mg started (9) Depression: Code(s): F32.9 - Major depressive disorder, single episode, unspecified Status: Acute Assessment and Plan: Zoloft 12.5 mg q.a.m. 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 Patient was found to have left-sided weakness and slurred speech. CT of the head showed no acute intracranial abnormalities. CTA of the head and neck showed no hemodynamically significant stenosis. MRI of the brain demonstrated restricted diffusion in the right periventricular region, wyatt radiata, centrum ovale, suggesting areas of acute lacunar infarcts. MRI of the spine noted degenerative changes with irregularities in the C-spine but no cord signal abnormalities. Echo revealed an ejection fraction of 65-70% and there was no PFO or shunting. Neurology was consulted and the patient was placed on aspirin, Plavix and statin. Patient continued to have left-sided weakness, impaired balance, decreased gross motor control, and decreased safety. Patient is on a regular consistency diet with thin liquids. Patient has intermittent dysarthria and some delayed speech. Patient currently requires min assist with all ADLs and mobility. Patient's transfer to [facility] was delayed after patient experienced a 1/2 hour episode of worsening left sided weakness. CT scan was performed with no new changes and patient was cleared to transfer to rehab. Patient was the primary caregiver of his . He has 2 daughters that are supportive. Therapy was initiated at the acute care facility and the patient transferred to us from [facility] on 03/16/2021 REHAB HOSPITAL COURSE: Depression. Patient was started on Zoloft 12.5 mg Hypertension: Patient was on Cozaar 100 mg daily. Metoptolol 200 mg at bedtime, Procardia XL 90mg daily. Marielle
[2021-03-26 11:35] LABS: Glucose Point of Care 102 mg/dl (65-105)
--- OUTSIDE RECORDS SUMMARY | 2021-03-28 12:09 | XMS_ITS ---
:1935 Author Organization [facility] Address [address] [place] [id number] [place] [address] Care Team Providers Name Role Phone Serenity Miner MD Primary Care Provider Belinda Venegas MD [facility] Nurse Maria Alejandra Esqueda customer assistance representative (Ambulatory) Unavailable Reason for Referral Imaging (Emergency) Status Reason Specialty Diagnoses / Referred By Referred To Procedures Contact Contact New Request RADIOLOGY Procedures Heather Randolph, CT HEAD WO CON DATA WARE[employer]SING MANAGER [place], [place] [address] Electronically signed by Heather Randolph APRN at (Routine) Status Reason Specialty Diagnoses / Referred By Referred To Procedures Contact Contact New Request Procedures RUBÉN Mcpherson eval and treat ANA Hodge [address] [place], [place] [address]
== END 2021-03-26 10:25 | disposition home health service (06) | DRG 57 ==
PROVIDERS: Admitting Provider Physical Medicine & Rehabilitation; PCP Family Medicine; Visit Provider Physical Medicine & Rehabilitation
DX: I69.354 Hemiplegia and hemiparesis following cerebral infarction affecting left non-dominant side (principal); I69.322 Dysarthria following cerebral infarction; I69.391 Dysphagia following cerebral infarction; R13.10 Dysphagia, unspecified; R29.6 Repeated falls; E11.9 Type 2 diabetes mellitus without complications; I10 Essential (primary) hypertension; I25.10 Atherosclerotic heart disease of native coronary artery without angina pectoris; N28.9 Disorder of kidney and ureter, unspecified; F41.8 Other specified anxiety disorders
CPT/HCPCS: 36415; 80053; 80061; 82948; 83036; 85025; 92507; 92523; 97110; 97116; 97161; 97165; 97530; 97535; A9270